=== PATIENT | female | born 1955 | race Caucasian/White ===

== ENCOUNTER 2017-11-04 17:32 | Observation (INO) ==
--- NOTE | 2017-11-04 17:43 | Emergency Department Note ---
Disposition Clinical Impression: Thyroid nodule, Syncope, Closed head injury, Urinary tract infection, Altered mental status Disposition: Admitted As Inpatient Condition: Good General Adult HPI - General Stated complaint: dizziness Time Seen by Provider: 11/04/17 17:37 - Related Data Home Medications Medication Instructions Recorded Confirmed Effexor 150 mg PO DAILY 02/23/15 06/25/15 Glucotrol 5 mg PO DAILY 02/23/15 06/25/15 Losartan. 100 mg PO DAILY 02/23/15 06/25/15 Pravastatin Sodium 40 mg PO BID 02/23/15 06/25/15 Cholecalciferol (Vitamin D3) 1,000 unit PO DAILY 06/25/15 06/25/15 [Vitamin D3] Cyclobenzaprine [Flexeril] 5 mg PO TID 06/25/15 06/25/15 Diclofenac Sodium [Voltaren] 50 mg PO Q8HR 06/25/15 06/25/15 Ergocalciferol (VITAMIN D2) 2,000 unit PO DAILY 06/25/15 06/25/15 [Vitamin D2] Gabapentin [Neurontin] 100 mg PO BID 06/25/15 06/25/15 Previous Rx's Medication Instructions Recorded Amoxicillin/Clavulanate [Augmentin] 875 mg PO BIDWM #14 tablet 06/07/16 Ciprofloxacin HCl [Cipro] 500 mg PO BID #14 tablet 07/31/16 Phenazopyridine HCl [Pyridium] 200 mg PO TIDAC PRN #6 tab 08/01/16 Cyclobenzaprine [Flexeril] 10 mg PO BID #14 tablet 11/08/16 Naproxen [Naprosyn] 250 mg PO BID #30 tablet 11/08/16 Dicyclomine [Bentyl] 20 mg PO QID #56 capsule 03/07/17 levoFLOXacin [Levaquin] 750 mg PO DAILY #5 tablet 05/05/17 metroNIDAZOLE [Flagyl] 500 mg PO BID #14 tablet 05/05/17 Allergies Allergy/AdvReac Type Severity Reaction Status Date / Time codeine Allergy Hives Verified 11/08/16 16:41 Sulfa (Sulfonamide Allergy Hives Verified 11/08/16 16:41 Antibiotics) Past Medical History - Past Medical History Medical history: Reports: arthritis, diabetes, fibromyalgia, hyperlipidemia, hypertension, other Surgical history: Reports: , other (History of D&C. History of esophageal tumor resection.) Psychiatric history: Reports: anxiety, depression - Social History Smoking Status: Former smoker Smokeless Tobacco Status: No Alcohol use: Reports: none Drug use: Reports: none Course Vital Signs Temperature 99.7 F H 11/04/17 17:36 Pulse Rate 72 11/04/17 17:36 Respiratory Rate 18 11/04/17 17:36 Blood Pressure 161/85 11/04/17 17:36 O2 Sat by Pulse Oximetry 99 11/04/17 17:36 Temperature 98.2 F 11/04/17 21:21 Pulse Rate 71 11/04/17 21:21 Respiratory Rate 16 11/04/17 21:21 Blood Pressure 151/70 11/04/17 21:21 O2 Sat by Pulse Oximetry 97 11/04/17 21:21 Oxygen Delivery Oxygen Delivery Room Air Medical Decision Making - Lab Data Result diagrams: 11/04/17 17:51 11/04/17 17:51 Lab Results 11/04/17 11/04/17 11/04/17 Range/Units 17:51 17:51 17:51 WBC 3.9 L (4.3-11.1) K/mcL RBC 3.90 (3.82-4.97) M/mcL Hgb 11.9 (11.5-15.4) g/dL Hct 34.4 L (35.3-44.9) % MCV 88.2 (83.0-100.0) fL MCH 30.5 (28.0-33.3) pg MCHC 34.6 (31.6-35.5) g/dL RDW 13.2 (11.5-14.5) % Plt Count 109 L (140-400) K/mcL MPV 11.2 (9.4-12.4) fL Immature Gran % 0.3 (0-4) % Seg Neutrophils % 63.9 % Lymphocytes % 28.1 % Monocytes % 6.6 % Eosinophils % 0.8 % Basophils % 0.3 % Neutrophils # 2.5 (1.6-8.9) K/mcL Lymphocytes # 1.1 (0.6-4.6) K/mcL Monocytes # 0.3 (0.0-1.3) K/mcL Eosinophils # 0.0 (0.0-0.6) K/mcL Basophils # 0.0 (0.0-0.2) K/mcL PT 13.0 H (9.4-12.1) Seconds INR 1.2 Sodium 138 (136-145) mEq/L Potassium 3.9 (3.5-5.1) mEq/L Chloride 107 (98-107) mEq/L Carbon Dioxide 23 (23-29) mEq/L BUN 13 (8-23) mg/dL Creatinine 0.91 (0.60-1.20) mg/dL Est GFR ( Amer) > 60 (> 60) Est GFR (Non-Af Amer) > 60 (> 60) BUN/Creatinine Ratio 14 (6-26) Glucose 250 H (70-105) mg/dL Calculated Osmolality 295 (280-300) Calcium 9.5 (8.6-10.3) mg/dL Magnesium 1.9 (1.6-2.6) mg/dL Total Bilirubin 0.4 (0.3-1.0) mg/dL AST 13 (13-39) Units/L ALT 18 (7-52) Units/L Alkaline Phosphatase 69 (34-104) Units/L Troponin I < 0.03 (< 0.04) ng/mL Serum Total Protein 7.2 (6.4-8.9) g/dL Albumin 4.5 (3.5-5.7) g/dL Globulin 2.7 (2.4-3.5) g/dL Albumin/Globulin Ratio 1.7 (1.1-2.2) Urine Color (Yellow) Urine Clarity (Clear) Urine pH (5.0-8.0) pH Units Ur Specific [place] (1.010-1.025) Urine Protein (Neg-Trace) mg/dL Urine Glucose (UA) (Normal) mg/dL Urine Ketones (Negative) mg/dL Urine Blood (Negative) Urine Nitrite (Negative) Urine Bilirubin (Negative) Urine Urobilinogen (Normal) mg/dL Ur Leukocyte Esterase (Negative) Urine Microscopic RBC (0-3) per hpf Urine Microscopic WBC (0-3) per hpf Ur Squamous Epith Cells (None-Few) per lpf Urine Bacteria (None-Few) per hpf Hyaline Casts (None-Few) per lpf 11/04/17 Range/Units 18:18 WBC (4.3-11.1) K/mcL RBC (3.82-4.97) M/mcL Hgb (11.5-15.4) g/dL Hct (35.3-44.9) % MCV (83.0-100.0) fL MCH (28.0-33.3) pg MCHC (31.6-35.5) g/dL RDW (11.5-14.5) % Plt Count (140-400) K/mcL MPV (9.4-12.4) fL Immature Gran % (0-4) % Seg Neutrophils % % Lymphocytes % % Monocytes % % Eosinophils % % Basophils % % Neutrophils # (1.6-8.9) K/mcL Lymphocytes # (0.6-4.6) K/mcL Monocytes # (0.0-1.3) K/mcL Eosinophils # (0.0-0.6) K/mcL Basophils # (0.0-0.2) K/mcL PT (9.4-12.1) Seconds INR Sodium (136-145) mEq/L Potassium (3.5-5.1) mEq/L Chloride (98-107) mEq/L Carbon Dioxide (23-29) mEq/L BUN (8-23) mg/dL Creatinine (0.60-1.20) mg/dL Est GFR ( Amer) (> 60) Est GFR (Non-Af Amer) (> 60) BUN/Creatinine Ratio (6-26) Glucose (70-105) mg/dL Calculated Osmolality (280-300) Calcium (8.6-10.3) mg/dL Magnesium (1.6-2.6) mg/dL Total Bilirubin (0.3-1.0) mg/dL AST (13-39) Units/L ALT (7-52) Units/L Alkaline Phosphatase (34-104) Units/L Troponin I (< 0.04) ng/mL Serum Total Protein (6.4-8.9) g/dL Albumin (3.5-5.7) g/dL Globulin (2.4-3.5) g/dL Albumin/Globulin Ratio (1.1-2.2) Urine Color Yellow (Yellow) Urine Clarity Cloudy A (Clear) Urine pH 5.5 (5.0-8.0) pH Units Ur Specific [place] 1.018 (1.010-1.025) Urine Protein Negative (Neg-Trace) mg/dL Urine Glucose (UA) 250 H (Normal) mg/dL Urine Ketones Negative (Negative) mg/dL Urine Blood Trace H (Negative) Urine Nitrite Positive A (Negative) Urine Bilirubin Negative (Negative) Urine Urobilinogen Normal (Normal) mg/dL Ur Leukocyte Esterase Large H (Negative) Urine Microscopic RBC 3-5 H (0-3) per hpf Urine Microscopic WBC TNTC H (0-3) per hpf Ur Squamous Epith Cells Moderate H (None-Few) per lpf Urine Bacteria Many H (None-Few) per hpf Hyaline Casts None Seen (None-Few) per lpf Attestation Statement - Attestation Attestation: I examined this patient and my medical decision-making was reviewed with the Resident Physician. I agree with the documented findings, disposition and treatment plan as described except to the extent set forth below. [id number] time provided Patient arrives by EMS. She states she gets dizzy she fell to her neighbor's floor. She complains of a sensation that the room is spinning and nausea. She is a slightly confused historian and did not know the month. She did accurately answer the correct year. She does not appear in any acute distress on exam. She lives at home alone
[2017-11-04 18:14] LABS: Basophils % 0.3 %; Eosinophils % 0.8 %; Hematocrit 34.4 % (35.3-44.9); Hemoglobin 11.9 g/dL (11.5-15.4); Immature Granulocytes % 0.3 % (0-4); Lymphocytes # 1.1 K/mcL (0.6-4.6); Lymphocytes % 28.1 %; Mean Corpuscular HGB Conc 34.6 g/dL (31.6-35.5); Mean Corpuscular Hemoglobin 30.5 pg (28.0-33.3); Mean Corpuscular Volume 88.2 fL (83.0-100.0); Mean Platelet Volume 11.2 fL (9.4-12.4); Monocytes # 0.3 K/mcL (0.0-1.3); Monocytes % 6.6 %; Neutrophils # 2.5 K/mcL (1.6-8.9); Platelet Count 109 K/mcL (140-400); Red Cell Distribution Width 13.2 % (11.5-14.5); Segmented Neutrophils % 63.9 %
--- NOTE | 2017-11-04 18:16 | Emergency Department Note ---
Disposition Clinical Impression: Thyroid nodule Syncope Qualifiers: Syncope type: unspecified Qualified Code(s): R55 - Syncope and collapse Closed head injury Qualifiers: Encounter type: initial encounter Qualified Code(s): S09.90XA - Unspecified injury of head, initial encounter Urinary tract infection Qualifiers: Urinary tract infection type: site unspecified Hematuria presence: with hematuria Qualified Code(s): N39.0 - Urinary tract infection, site not specified Altered mental status Qualifiers: Altered mental status type: unspecified Qualified Code(s): R41.82 - Altered mental status, unspecified Disposition: Admitted As Inpatient Condition: Good Referrals: Susanna Garnica CNP [Primary Care Provider] - Forms: ED Satisfaction Letter Time of Disposition: 19:34 General Adult HPI - General Chief complaint: ED Dizziness Stated complaint: dizziness Time Seen by Provider: 11/04/17 17:37 Source: patient, EMS Mode of arrival: EMS Limitations: no limitations Nursing Notes Reviewed: Yes Vital Signs Reviewed: Yes - History of Present Illness HPI Narrative: 62-year-old female presents emergency department via EMS for syncopal episode. Patient states she went to her neighbor's house and believe she passed out. She is not able to recall why she was at her neighbors house. She recalls feeling lightheaded. She states she was in the house from a sitting to standing position and then believe she passed out. Her neighbors called EMS. She states earlier today she felt like she was having trouble walking. She states over the past week she has been feeling weak with some complaints of chest pain that had resolved 3 to 4 days ago. Currently she is not complaining of any chest pain or shortness of breath. Does report a slight headache to the front of her head. No neck pain. No history of stroke or seizures. No history of cardiac ischemic disease. No recent illness fever cough or congestion. No history of congestive heart failure. Pain Scale: 4 - Related Data Home Medications Medication Instructions Recorded Confirmed Effexor 150 mg PO DAILY 02/23/15 06/25/15 Glucotrol 5 mg PO DAILY 02/23/15 06/25/15 Losartan. 100 mg PO DAILY 02/23/15 06/25/15 Pravastatin Sodium 40 mg PO BID 02/23/15 06/25/15 Cholecalciferol (Vitamin D3) 1,000 unit PO DAILY 06/25/15 06/25/15 [Vitamin D3] Cyclobenzaprine [Flexeril] 5 mg PO TID 06/25/15 06/25/15 Diclofenac Sodium [Voltaren] 50 mg PO Q8HR 06/25/15 06/25/15 Ergocalciferol (VITAMIN D2) 2,000 unit PO DAILY 06/25/15 06/25/15 [Vitamin D2] Gabapentin [Neurontin] 100 mg PO BID 06/25/15 06/25/15 Previous Rx's Medication Instructions Recorded Amoxicillin/Clavulanate [Augmentin] 875 mg PO BIDWM #14 tablet 06/07/16 Ciprofloxacin HCl [Cipro] 500 mg PO BID #14 tablet 07/31/16 Phenazopyridine HCl [Pyridium] 200 mg PO TIDAC PRN #6 tab 08/01/16 Cyclobenzaprine [Flexeril] 10 mg PO BID #14 tablet 11/08/16 Naproxen [Naprosyn] 250 mg PO BID #30 tablet 11/08/16 Dicyclomine [Bentyl] 20 mg PO QID #56 capsule 03/07/17 levoFLOXacin [Levaquin] 750 mg PO DAILY #5 tablet 05/05/17 metroNIDAZOLE [Flagyl] 500 mg PO BID #14 tablet 05/05/17 Allergies Allergy/AdvReac Type Severity Reaction Status Date / Time codeine Allergy Hives Verified 11/08/16 16:41 Sulfa (Sulfonamide Allergy Hives Verified 11/08/16 16:41 Antibiotics) All systems ED: reviewed and negative except as stated. Review of Systems: As Per HPI Constitutional: Denies: fever, chills Cardiovascular: Reports: syncope. Denies: chest pain, palpitations Respiratory: Denies: cough, dyspnea Gastrointestinal: Denies: abdominal pain, nausea, vomiting Musculoskeletal: Denies: back pain, neck pain Integumentary: Denies: rash Neurological: Reports: headache, confusion, abnormal gait Past Medical History - Past Medical History Attestation: Yes The following information was validated with the patient. Source: patient Medical history: Reports: arthritis, diabetes, fibromyalgia, hyperlipidemia, hypertension, other Surgical history: Reports: , other (History of D&C. History of esophageal tumor resection.) Psychiatric history: Reports: anxiety, depression - Social History Smoking Status: Former smoker Smokeless Tobacco Status: No Alcohol use: Reports: none Drug use: Reports: none Physical Exam - General Limitations: no limitations General appearance: alert, in no apparent distress, other (Slow to answer slightly confused) - Head Head exam: normocephalic, normal inspection - Expanded Head Exam Head exam physicial: Present: abrasion (Right frontal). Absent: contusion - Eye Eye exam: Present: normal appearance, PERRL, EOMI. Absent: nystagmus - ENT ENT exam: normal exam, normal oropharynx, mucous membranes moist, TM's normal bilaterally - Neck Neck exam: Present: normal inspection, full ROM, trachea midline - Chest Chest inspection: Present: normal inspection, symmetric chest wall rise - Respiratory Respiratory exam: Present: normal lung sounds bilaterally - Cardiovascular Cardiovascular exam: Present: regular rate, normal rhythm, normal heart sounds, other (No murmur on Valsalva). Absent: systolic murmur, diastolic murmur - Abdominal Exam Abdominal exam: Present: soft (Obese), Non-Tender, normal bowel sounds. Absent : tenderness, distention, guarding, rebound, rigidity - Extremities Exam Extremities exam: Present: normal inspection, full ROM. Absent: tenderness, pedal edema - Back Exam Back exam: Present: normal inspection, full ROM. Absent: tenderness - Neurological Exam Neurological exam: Present: CN II-XII intact - Expanded Neurological Exam Patient oriented to: Present: person, place. Absent: time (Initially unable to tell at the time but now answers correctly 2018) Cranial nerves: EOM function (II, III, IV, ): Normal, facial sensation (V): Abnormal Right (Subjective dull sensation to the right of her face), facial palsy (VII): Normal, gag reflex (IX): Normal, spinal accessory function (XI): Normal, tongue deviation (XII): Normal Cerebellar function: finger to nose: Normal Motor strength - LUE: 5/5 Motor strength - RUE: 5/5 Motor strength - LLE: 5/5 Motor strength - RLE: 5/5 Upper motor neuron exam: nvaeen neglect: Absent bilaterally, pronator drift: Absent bilaterally Sensory exam upper extremity: light touch: Normal Sensory exam lower extremity: light touch: Normal Coma Scale Eye Opening: Spontaneous Coma Scale Motor Response: Obeys Commands Coma Scale Verbal Response: Confused Coma Scale Total: 14 - Psychiatric Psychiatric exam: Present: normal affect, normal mood - Skin Skin exam: Present: warm, dry, intact, normal color. Absent: rash, cyanosis, diaphoresis Course Course Narrative: Patient presents with a syncopal episode witnessed by neighborhood called EMS. Daughter is now here at bedside and reports similar history. Patient is unable to recall some of the events today. She does report over the past few days feeling lightheaded with difficulty walking. She denies a prior history of this. She is now complaining of a headache. Patient initially was awake alert and only oriented to person place. She is not oriented to time. On neurologic exam she has a dull sensation to the right side of her face and arm that is improving. Otherwise she is following simple commands. No history of congestive heart failure or history of seizure. EKG performed showed sinus rhythm without any ischemic findings. No delta waves, Brugada pattern or LVH appreciated. At this time syncope workup including CT of the head and cervical spine given her loss of consciousness. Will also evaluate for cardiac etiology. - Reevaluation(s) Reevaluation #1: Review of her labs shows a normal hemoglobin level. Her electrolytes are normal. Troponin is less than 0.03. Her urinalysis does appear contaminated but also is positive for Nitrite and leuk esterase strongly suggestive of possible urinary tract infection. At this time will obtain a culture but also treat with ceftriaxone. Review of her images does not reveal any intracranial bleed or abnormality. No cervical fracture seen on CT. There is incidental finding of a 2.6 mm thyroid nodule. Patient was made aware of this finding. At this time patient will benefit further monitoring and workup for her syncopal episode with possible MRI. She will be admitted given her altered mental status syncopal episode and urinary tract infection. Patient and family are in agreement with this plan. Time: 19:32 - Consultations Consultation #1: Spoke with on-call hospitalist levi Miller to admit for UTI, syncope, lightheadedness. Agree with treatment for urinary tract infection. Urine culture has been sent. Recommendation for syncope evaluation and possible MRI Time: 19:43 Vital Signs Temperature 99.7 F H 11/04/17 17:36 Pulse Rate 72 11/04/17 17:36 Respiratory Rate 18 11/04/17 17:36 Blood Pressure 161/85 11/04/17 17:36 O2 Sat by Pulse Oximetry 99 11/04/17 17:36 Temperature 99.7 F H 11/04/17 17:36 Pulse Rate 81 11/04/17 19:20 Respiratory Rate 16 11/04/17 19:20 Blood Pressure 164/86 11/04/17 19:20 O2 Sat by Pulse Oximetry 99 11/04/17 19:20 Oxygen Delivery Oxygen Delivery Room Air Medical Decision Making - MDM Narrative Medical decision making narrative: Patient was discussed with my attending physician who agrees with ED management and final disposition. They independently evaluated the patient. Please refer to their attestation to this encounter for additional information. This note was generated by [employer] recognition software and as a result grammatical or spelling errors may occur using this program. - Medical Records Medical records reviewed: Yes I reviewed the patient's medical records. - Lab Data Lab results reviewed: Yes I reviewed the patient's lab results. Result diagrams: 11/04/17 17:51 11/04/17 17:51 Lab Results 11/04/17 11/04/17 11/04/17 Range/Units 17:51 17:51 17:51 WBC 3.9 L (4.3-11.1) K/mcL RBC 3.90 (3.82-4.97) M/mcL Hgb 11.9 (11.5-15.4) g/dL Hct 34.4 L (35.3-44.9) % MCV 88.2 (83.0-100.0) fL MCH 30.5 (28.0-33.3) pg MCHC 34.6 (31.6-35.5) g/dL RDW 13.2 (11.5-14.5) % Plt Count 109 L (140-400) K/mcL MPV 11.2 (9.4-12.4) fL Immature Gran % 0.3 (0-4) % Seg Neutrophils % 63.9 % Lymphocytes % 28.1 % Monocytes % 6.6 % Eosinophils % 0.8 % Basophils % 0.3 % Neutrophils # 2.5 (1.6-8.9) K/mcL Lymphocytes # 1.1 (0.6-4.6) K/mcL Monocytes # 0.3 (0.0-1.3) K/mcL Eosinophils # 0.0 (0.0-0.6) K/mcL Basophils # 0.0 (0.0-0.2) K/mcL PT 13.0 H (9.4-12.1) Seconds INR 1.2 Sodium 138 (136-145) mEq/L Potassium 3.9 (3.5-5.1) mEq/L Chloride 107 (98-107) mEq/L Carbon Dioxide 23 (23-29) mEq/L BUN 13 (8-23) mg/dL Creatinine 0.91 (0.60-1.20) mg/dL Est GFR ( Amer) > 60 (> 60) Est GFR (Non-Af Amer) > 60 (> 60) BUN/Creatinine Ratio 14 (6-26) Glucose 250 H (70-105) mg/dL Calculated Osmolality 295 (280-300) Calcium 9.5 (8.6-10.3) mg/dL Magnesium 1.9 (1.6-2.6) mg/dL Total Bilirubin 0.4 (0.3-1.0) mg/dL AST 13 (13-39) Units/L ALT 18 (7-52) Units/L Alkaline Phosphatase 69 (34-104) Units/L Troponin I < 0.03 (< 0.04) ng/mL Serum Total Protein 7.2 (6.4-8.9) g/dL Albumin 4.5 (3.5-5.7) g/dL Globulin 2.7 (2.4-3.5) g/dL Albumin/Globulin Ratio 1.7 (1.1-2.2) Urine Color (Yellow) Urine Clarity (Clear) Urine pH (5.0-8.0) pH Units Ur Specific [place] (1.010-1.025) Urine Protein (Neg-Trace) mg/dL Urine Glucose (UA) (Normal) mg/dL Urine Ketones (Negative) mg/dL Urine Blood (Negative) Urine Nitrite (Negative) Urine Bilirubin (Negative) Urine Urobilinogen (Normal) mg/dL Ur Leukocyte Esterase (Negative) Urine Microscopic RBC (0-3) per hpf Urine Microscopic WBC (0-3) per hpf Ur Squamous Epith Cells (None-Few) per lpf Urine Bacteria (None-Few) per hpf Hyaline Casts (None-Few) per lpf 11/04/17 Range/Units 18:18 WBC (4.3-11.1) K/mcL RBC (3.82-4.97) M/mcL Hgb (11.5-15.4) g/dL Hct (35.3-44.9) % MCV (83.0-100.0) fL MCH (28.0-33.3) pg MCHC (31.6-35.5) g/dL RDW (11.5-14.5) % Plt Count (140-400) K/mcL MPV (9.4-12.4) fL Immature Gran % (0-4) % Seg Neutrophils % % Lymphocytes % % Monocytes % % Eosinophils % % Basophils % % Neutrophils # (1.6-8.9) K/mcL Lymphocytes # (0.6-4.6) K/mcL Monocytes # (0.0-1.3) K/mcL Eosinophils # (0.0-0.6) K/mcL Basophils # (0.0-0.2) K/mcL PT (9.4-12.1) Seconds INR Sodium (136-145) mEq/L Potassium (3.5-5.1) mEq/L Chloride (98-107) mEq/L Carbon Dioxide (23-29) mEq/L BUN (8-23) mg/dL Creatinine (0.60-1.20) mg/dL Est GFR ( Amer) (> 60) Est GFR (Non-Af Amer) (> 60) BUN/Creatinine Ratio (6-26) Glucose (70-105) mg/dL Calculated Osmolality (280-300) Calcium (8.6-10.3) mg/dL Magnesium (1.6-2.6) mg/dL Total Bilirubin (0.3-1.0) mg/dL AST (13-39) Units/L ALT (7-52) Units/L Alkaline Phosphatase (34-104) Units/L Troponin I (< 0.04) ng/mL Serum Total Protein (6.4-8.9) g/dL Albumin (3.5-5.7) g/dL Globulin (2.4-3.5) g/dL Albumin/Globulin Ratio (1.1-2.2) Urine Color Yellow (Yellow) Urine Clarity Cloudy A (Clear) Urine pH 5.5 (5.0-8.0) pH Units Ur Specific [place] 1.018 (1.010-1.025) Urine Protein Negative (Neg-Trace) mg/dL Urine Glucose (UA) 250 H (Normal) mg/dL Urine Ketones Negative (Negative) mg/dL Urine Blood Trace H (Negative) Urine Nitrite Positive A (Negative) Urine Bilirubin Negative (Negative) Urine Urobilinogen Normal (Normal) mg/dL Ur Leukocyte Esterase Large H (Negative) Urine Microscopic RBC 3-5 H (0-3) per hpf Urine Microscopic WBC TNTC H (0-3) per hpf Ur Squamous Epith Cells Moderate H (None-Few) per lpf Urine Bacteria Many H (None-Few) per hpf Hyaline Casts None Seen (None-Few) per lpf - Radiology Data Radiology results reviewed: Yes I reviewed the patient's radiology results. Cervical Spine CT 11/04/17 17:47 IMPRESSION: 1. No acute cervical spine abnormality 2. 2.6 cm hypodense left thyroid nodule. See recommendations below. RECOMMENDATIONS: Managing Incidental Thyroid Nodule Detected at CT or MRI or US 1. Further evaluation by thyroid Ultrasound recommended for these incidental nodules: Patient Age 18 years or less - Nodule of any size Patient Age 19-34 years old - Nodule 1 cm in size or greater Patient Age 35 years or more - Nodule 1.5 cm in size or greater 2. Follow up thyroid ultrasound also recommend in these scenarios - Solitary nodule with high risk imaging features (locally invasive nodule or suspicious lymph nodes) - Heterogeneous, enlarged thyroid gland. - Increased uptake on PET 3. No further imaging is recommended in the following scenarios - Any nodule not meeting above criteria. - Those patients with limited life expectancy or significant Co-morbidities. Note: These recommendations do not apply to pts. w/ increased risk for thyroid cancer or pts. with symptomatic thyroid disease. Recommendations for f/u of Incidental Thyroid Nodules (ITN) found on CT, MR, NM and Extrathyroidal US are based upon the ACR white paper and [place] 3-tiered system for managing ITNs: J Am Daren Radiol. 2015 Mar;12(2): 143-50 D/ / Brian Zuleta MD / Brian Zuleta MD Interpreting Provider: Brian Zuleta MD Head CT 11/04/17 17:47 IMPRESSION: No acute intracranial abnormality. D/ / Amaris Yap MD / Amaris Yap MD Interpreting Provider: Amaris Yap MD - EKG Data EKG #1 EKG attestation: Yes I reviewed and interpreted this EKG. EKG results narrative: EKG performed 1744 normal sinus rhythm 70 beats per minute, left anterior fascicular block, poor R wave progression, no ST elevation or depression, no Brugada pattern appreciated, no delta waves, no LVH. Compared to prior EKG performed 04/20/2016 shows similar consistent findings of sinus rhythm. No acute ischemic changes.
[2017-11-04 18:21] LABS: INR 1.2
[2017-11-04 18:31] LABS: Alanine Aminotransferase 18 Units/L (7-52); Albumin 4.5 g/dL (3.5-5.7); Albumin/Globulin Ratio 1.7 (1.1-2.2); Alkaline Phosphatase 69 Units/L (34-104); Aspartate Amino Transferase 13 Units/L (13-39); BUN/Creatinine Ratio 14 (6-26); Bilirubin,Total 0.4 mg/dL (0.3-1.0); Blood Urea Nitrogen 13 mg/dL (8-23); Calcium 9.5 mg/dL (8.6-10.3); Carbon Dioxide 23 mEq/L (23-29); Chloride 107 mEq/L (98-107); Globulin 2.7 g/dL (2.4-3.5); Glucose 250 mg/dL (70-105); Magnesium 1.9 mg/dL (1.6-2.6); Osmolality,Calculated 295 (280-300); Potassium 3.9 mEq/L (3.5-5.1); Sodium 138 mEq/L (136-145); Total Protein 7.2 g/dL (6.4-8.9); Troponin I < 0.03 ng/mL (< 0.04); eGFR For Non-African Americans > 60 (> 60)
[2017-11-04 18:34] LABS: Bilirubin,Urine Negative (Negative); Blood,Urine Trace (Negative); Clarity,Urine Cloudy (Clear); Color,Urine Yellow (Yellow); Glucose,Urine (UA) 250 mg/dL (Normal); Ketones,Urine Negative (Negative); Leukocyte Esterase,Urine Large (Negative); Nitrite,Urine Positive (Negative); PH,Urine 5.5 pH Units (5.0-8.0); Protein,Urine Negative (Neg-Trace); Specific Gravity,Urine 1.018 (1.010-1.025); Urobilinogen,Urine Normal (Normal)
[2017-11-04 18:37] LABS: Bacteria,Urine Many per hpf (None-Few); Hyaline Casts,Urine None Seen per lpf (None-Few); Squamous Epithelial Cell,Urine Moderate per lpf (None-Few); WBC,Urine TNTC per hpf (0-3)
[2017-11-04] MEDS ORDERED: cefTRIAXone 1,000 MG in Water for inj. (sterile) 20 ML 10 ML IVPB ONE (18:45)
[2017-11-04] MEDS ORDERED: Naloxone 0.4 MG/ML INJ IVP PRN (22:39)
[2017-11-05] MEDS ORDERED: Ibuprofen 400 MG TABLET PO PRN (02:18)
--- NOTE | 2017-11-05 04:23 | Internal Med History&Physical ---
Date of Encounter: 11/04/17 Time of Encounter: 22:00 Internal Medicine - H&P: HPI Chief complaint: UTI, syncope Admitted From: Emergency Dept Plans for Post Hospital Care: Home History of present illness: Ms. Duffy is a 62 year old female Patient states that she was at her neighbor's house and began feeling dizzy when she passed out. She had been feeling dizzy the last couple of days but had not passed out until when she was at her neighbor's house. She recalls the moment as she was blacking out because she remembers her neighbor talking to her. She remembers the moment she woke up as her neighbor was at her side and also getting the attention of her daughter who was next door. She denies hitting her head. Her daughter who is at bedside indicated that she has had several falls lately, though patient denies this. No seizure-like activity with these episodes were observed, patient did not lose bowel or bladder control. She does state she has a family history of seizures but she has never had one herself. She was transported to the hospital for further management and workup of her syncope. In the emergency room urinalysis was positive for likely infection, she had a platelet count of 109 in a blood glucose of 250. Cervical spine CT showed no acute cervical spine abnormality and head CT showed no acute intracranial abnormality. Cervical spine CT did show a 2.6 cm hypodense left thyroid nodule however. She was started on ceftriaxone, urine cultures were obtained she was admitted to the medical floor. Upon my assessment patient states that she is having some right lower quadrant pain, though this is not new. She has been having workup outpatient for this and has a prescription for a right lower quadrant ultrasound which she has not done yet. She states she has a history of sciatica, possibly cirrhosis and genital herpes but no recent outbreak. She claims to drink lots of water and she stays hydrated. She denies nausea, vomiting, diarrhea, constipation, chest pain. Past Med Surg Social Fam HX - Past Medical History Medical history: arthritis, diabetes, fibromyalgia, hyperlipidemia, hypertension , other Psychiatric history: anxiety, depression - Past Surgical History Surgical History: , other (History of D&C. 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 100 mg PO DAILY 02/23/15 [History] Pravastatin Sodium 40 mg PO DAILY 02/23/15 [History] Cholecalciferol (Vitamin D3) [Vitamin D3] 1,000 unit PO DAILY 06/25/15 [History] Cyclobenzaprine [Flexeril] 5 mg PO TID 06/25/15 [History] Diclofenac Sodium [Voltaren] 50 mg PO TID 06/25/15 [History] Ergocalciferol (VITAMIN D2) [Vitamin D2] 2,000 unit PO DAILY 06/25/15 [History] Gabapentin [Neurontin] 100 mg PO BID 06/25/15 [History] Amoxicillin/Clavulanate [Augmentin] 875 mg PO BIDWM #14 tablet 06/07/16 [Rx] Ciprofloxacin HCl [Cipro] 500 mg PO BID #14 tablet 07/31/16 [Rx] Phenazopyridine HCl [Pyridium] 200 mg PO TIDAC PRN #6 tab 08/01/16 [Rx] Cyclobenzaprine [Flexeril] 10 mg PO BID #14 tablet 11/08/16 [Rx] Naproxen [Naprosyn] 250 mg PO BID #30 tablet 11/08/16 [Rx] Dicyclomine [Bentyl] 20 mg PO QID #56 capsule 03/07/17 [Rx] levoFLOXacin [Levaquin] 750 mg PO DAILY #5 tablet 05/05/17 [Rx] metroNIDAZOLE [Flagyl] 500 mg PO BID #14 tablet 05/05/17 [Rx] Metformin HCl 1,000 mg PO BID 11/05/17 [History] Neurontin 600 mg PO BID 11/05/17 [History] 3 Allergy/AdvReac Type Severity Reaction Status Date / Time codeine Allergy Hives Verified 11/08/16 16:41 Sulfa (Sulfonamide Allergy Hives Verified 11/08/16 16:41 Antibiotics) All Systems PM: A 10-system review of systems was performed and is negative for pertinent findings except as documented above in the HPI. - Constitutional Vitals: Temp Pulse Resp BP Pulse Ox 98.1 F 67 16 115/49 98 11/05/17 02:46 11/05/17 02:46 11/05/17 02:46 11/05/17 02:46 11/05/17 02:46 General appearance: Present: cooperative, mild distress, A&O X 3, pleasant, answers questions appropriately Exam: Mild distress due to urinary pain - Head Head exam: Present: normal inspection - Eye Eye exam: Present: EOMI, normal appearance - Respiratory Respiratory exam: Present: CTAB. Absent: chest wall tenderness, respiratory distress, rhonchi, wheezes - Cardiovascular Cardiovascular exam: Present: RRR. Absent: diastolic murmur, systolic murmur - GI/Abdominal GI/Abdominal exam: Present: soft, tenderness. Absent: guarding Additional comments: Mild right lower quadrant pain to deep palpation - Extremities Exam Extremities exam: Present: warm, radial pulses palpable and symmetrical. Absent : calf tenderness, pedal edema, tenderness - Neurological Exam Neurological exam: Present: no focal deficits, strengths equal and symetr throughout. Absent: motor sensory deficit, facial droop, speech deficit - Skin Skin exam: Present: dry, normal color, warm Internal Med - H&P Results - Labs CBC & Chem 7: 11/04/17 17:51 11/04/17 17:51 - Assessment and plan (1) Urinary tract infection Current Visit: Yes Status: Acute Assessment and plan: UA positive for nitrites and large leukocyte esterase, trace blood and many bacteria. Urine culture ordered, ceftriaxone initiated in the emergency room. Continue ceftriaxone Follow-up urine culture Pyidium for dysuria Diclofenac for pain, allergy to codeine Repeat UA to ensure hematuria resolution. Qualifiers: Urinary tract infection type: site unspecified Hematuria presence: with hematuria Qualified Code(s): N39.0 - Urinary tract infection, site not specified; R31.9 - Hematuria, unspecified (2) Syncope Current Visit: Yes Status: Acute Assessment and plan: Could be exacerbated by urinary tract infection, patient has had several of them in the past. Daughter states that she has several falls at home. No seizure history. PT/OT consult in AM Orthostatic vital signs in AM Treat UTI as above Qualifiers: Syncope type: unspecified Qualified Code(s): R55 - Syncope and collapse (3) Poorly controlled diabetes mellitus Current Visit: No Status: Acute Assessment and plan: Glucose of 250 in ER. States that her sugars at home range in the high 100's to 200's normally. A1c in August was 7.5 Continue to monitor sugars with meals and at night Low dose sliding scale insulin. (4) Thyroid nodule Current Visit: Yes Status: Acute Assessment and plan: Has history of work up for this back in May, including biopsy. Results consistent with benign follicular nodule with reactive fibrosis. Continue to monitor. (5) Thrombocytopenia Current Visit: No Status: Acute Assessment and plan: Platelets 109, states that she might have a history of cirrhosis, but this diagnosis not in her history. Continue to monitor. (6) DVT prophylaxis Current Visit: Yes Status: Acute Assessment and plan: SCDs due to thrombocytopenia (7) Right lower quadrant abdominal pain Current Visit: Yes Status: Acute Assessment and plan: Could be related to UTI, has mild tenderness on exam. Consider ultrasound if not improving with treatment of UTI. - Time Spent With Patient Total time spent is greater than 50% in coordination of care (as documented) at patient's floor/unit and/or counseling patient: 25 - 35 minutes
[2017-11-05] MEDS ORDERED: D5% in Water 1,000 ML IVC PRN (04:38)
[2017-11-05] MEDS ORDERED: Dextrose Gel 15 GM/37.5 ML TUBE PO PRN ×2 (04:38)
[2017-11-05] MEDS ORDERED: *HR* Dextrose 50 % in Water (Syg) 50 ML SYRINGE IVP PRN (04:38)
[2017-11-05 05:08] LABS: Hematocrit 34.7 % (35.3-44.9); Hemoglobin 11.6 g/dL (11.5-15.4); Mean Corpuscular HGB Conc 33.4 g/dL (31.6-35.5); Mean Corpuscular Hemoglobin 29.9 pg (28.0-33.3); Mean Corpuscular Volume 89.4 fL (83.0-100.0); Mean Platelet Volume 11.4 fL (9.4-12.4); Platelet Count 108 K/mcL (140-400); Red Blood Count 3.88 M/mcL (3.82-4.97); Red Cell Distribution Width 13.2 % (11.5-14.5)
[2017-11-05 05:28] LABS: BUN/Creatinine Ratio 13 (6-26); Blood Urea Nitrogen 12 mg/dL (8-23); Calcium 9.5 mg/dL (8.6-10.3); Carbon Dioxide 25 mEq/L (23-29); Chloride 107 mEq/L (98-107); Glucose 158 mg/dL (70-105); Osmolality,Calculated 293 (280-300); Potassium 3.6 mEq/L (3.5-5.1); Sodium 140 mEq/L (136-145); eGFR For Non-African Americans > 60 (> 60)
[2017-11-05] MEDS: Insulin LISPRO 300 UNITS/3 ML VIAL SQ SCH ×3 (09:36→17:59)
[2017-11-05] MEDS: Venlafaxine XR (24 HR) 150 MG CAP.ER.24H PO SCH (09:38)
[2017-11-05] MEDS: Gabapentin 300 MG CAPSULE PO SCH ×2 (09:38→21:04)
[2017-11-05] MEDS: cefTRIAXone 1,000 MG in Water for inj. (sterile) 20 ML 10 ML IVP SCH (09:38)
--- NOTE | 2017-11-05 16:43 | Internal Med Progress Note ---
Hospitalist Progress Note - Encounter Date of Encounter: 11/05/17 Time of Encounter: 15:30 - Subjective Interval History: Ms Duffy is currently in observation for near syncope that appears related to UTI. She remains moderate to high risk. Ms Duffy is still feeling dizzy when she stands but is overall slowly improving. No fever or chills. Appetite OK. Culture of urine is pending at this time. - Exam Vitals: Temp Pulse Resp BP Pulse Ox 98.0 F 75 17 142/78 98 11/05/17 15:45 11/05/17 15:45 11/05/17 15:45 11/05/17 15:45 11/05/17 15:45 Exam: General: Alert and oriented. Comfortable at this time. Skin: Normal color, no rash, no lesions. H: Normocephalic. EENT: EOMI, pupils equal, round and reactive. Mucus membranes moist. No lesion. Cardiovascular: Normal S1 & S2, no rubs, or gallops. No JVD. Pulse regular. ? faint systolic murmur. Lungs: Normal breath sounds, no wheezes or crackles. Abdomen: Soft, no rigidity. Normal bowel sounds. Mild discomfort R side without peritoneal signs. Extremities: No deformity, no edema or tenderness, no joint swelling or clubbing. Neurological: Normal cognition and motor skills. Pulses: Carotid and radial pulses normal +2. Rest of the physical exam is non contributory - Assessment and Plan (1) Urinary tract infection Current Visit: Yes Status: Acute Assessment and Plan: UA suggestive of infection. Culture pending at this time. Continue IV abx. Will check ultrasound of pelvis due pain in abdomen. (2) Syncope Current Visit: Yes Status: Acute Assessment and Plan: Related to UTI. (3) Diabetes mellitus Current Visit: No Status: Chronic Assessment and Plan: Blood sugar markedly elevated this afternoon. Continue current management of blood sugar. (4) Hypertension Current Visit: Yes Status: Chronic Assessment and Plan: Fairly controlled. Continue meds. (5) Thrombocytopenia Current Visit: No Status: Chronic Assessment and Plan: Following. - Time Spent with Patient Total time spent is greater than 50% in coordination of care (as documented) at patient's floor/unit and/or counseling patient: Internal Medicine: Result - Labs CBC & Chem 7: 11/05/17 03:52 11/05/17 03:52 Labs: Short CBC 11/05/17 Range/Units 03:52 WBC 5.7 (4.3-11.1) K/mcL Hgb 11.6 (11.5-15.4) g/dL Hct 34.7 L (35.3-44.9) % Plt Count 108 L (140-400) K/mcL BMP 11/05/17 03:52 Sodium 140 Potassium 3.6 Chloride 107 Carbon Dioxide 25 BUN 12 Creatinine 0.89 Glucose 158 H Calcium 9.5 - ABG Interpretation ABG results: PT/INR, D-dimer PT 13.0 Seconds (9.4-12.1) H 11/04/17 17:51 Consult Discharge Plan - Plan Referrals: Susanna Garnica, STATE COMPTROLLER [Primary Care Provider] - 11/12/17 2:00 pm (1) Urinary tract infection Qualifiers: Urinary tract infection type: acute cystitis Hematuria presence: with hematuria Qualified Code(s): N30.01 - Acute cystitis with hematuria (2) Syncope Qualifiers: Syncope type: unspecified Qualified Code(s): R55 - Syncope and collapse (3) Diabetes mellitus Qualifiers: Diabetes mellitus type: type 2 Diabetes mellitus detention insulin use: without photo technician use Diabetes mellitus complication status: with hyperglycemia Qualified Code(s): E11.65 - Type 2 diabetes mellitus with hyperglycemia (4) Hypertension Qualifiers: Hypertension type: essential hypertension Qualified Code(s): I10 - Essential (primary) hypertension
[2017-11-05] MEDS ORDERED: Insulin LISPRO 300 UNITS/3 ML VIAL SQ SCH (21:00)
[2017-11-05] MEDS: Acetaminophen 325 MG TABLET PO PRN (21:04)
[2017-11-06 05:15] LABS: Hematocrit 32.3 % (35.3-44.9); Hemoglobin 10.7 g/dL (11.5-15.4); Mean Corpuscular HGB Conc 33.1 g/dL (31.6-35.5); Mean Corpuscular Hemoglobin 29.5 pg (28.0-33.3); Mean Platelet Volume 10.8 fL (9.4-12.4); Platelet Count 106 K/mcL (140-400); Red Blood Count 3.63 M/mcL (3.82-4.97); Red Cell Distribution Width 13.2 % (11.5-14.5)
[2017-11-06 05:36] LABS: BUN/Creatinine Ratio 17 (6-26); Blood Urea Nitrogen 17 mg/dL (8-23); Carbon Dioxide 23 mEq/L (23-29); Chloride 107 mEq/L (98-107); Glucose 183 mg/dL (70-105); Magnesium 1.9 mg/dL (1.6-2.6); Osmolality,Calculated 294 (280-300); Potassium 3.7 mEq/L (3.5-5.1); Sodium 139 mEq/L (136-145); eGFR For Non-African Americans 56 (> 60)
[2017-11-06] MEDS: Insulin LISPRO 300 UNITS/3 ML VIAL SQ SCH ×4 (09:09→22:12)
[2017-11-06] MEDS: cefTRIAXone 1,000 MG in Water for inj. (sterile) 20 ML 10 ML IVP SCH (09:10)
[2017-11-06] MEDS: Gabapentin 300 MG CAPSULE PO SCH ×2 (09:11→20:34)
[2017-11-06] MEDS: Venlafaxine XR (24 HR) 150 MG CAP.ER.24H PO SCH (09:11)
--- NOTE | 2017-11-06 12:22 | Internal Med Progress Note ---
Hospitalist Progress Note - Encounter Date of Encounter: 11/06/17 Time of Encounter: 12:21 - Subjective Interval History: Patient seen and examined at bedside. Patient states that she feels weak and lightheaded. Denies any urinary symptoms at this - Exam Vitals: Temp Pulse Resp BP Pulse Ox 98.0 F 59 18 106/66 98 11/06/17 11:04 11/06/17 11:04 11/06/17 11:04 11/06/17 11:04 11/06/17 11:04 Exam: General: Alert and oriented. Comfortable at this time. Skin: Normal color, no rash, no lesions. H: Normocephalic. EENT: EOMI, pupils equal, round and reactive. Mucus membranes moist. No lesion. Cardiovascular: Normal S1 & S2, no rubs, or gallops. No JVD. Pulse regular. Lungs: Normal breath sounds, no wheezes or crackles. Abdomen: Soft, no rigidity. Normal bowel sounds. Mild discomfort R side without peritoneal signs. Extremities: No deformity, no edema or tenderness, no joint swelling or clubbing. Neurological: Normal cognition and motor skills. Pulses: Carotid and radial pulses normal +2. Rest of the physical exam is non contributory - Assessment and Plan (1) Diabetes mellitus Current Visit: No Status: Chronic Assessment and Plan: Blood sugar-up and elevated. We will increase sliding scale to medium continue with diabetic diet (2) Thrombocytopenia Current Visit: No Status: Chronic Assessment and Plan: Appears to be stable at this time no active bleeding (3) Syncope Current Visit: Yes Status: Acute Assessment and Plan: Suspect related to UTI PT OT evaluate patient recommending vestibular PT as outpatient as well as walker We will recheck orthostatic vital signs (4) Urinary tract infection Current Visit: Yes Status: Acute Assessment and Plan: UA suggestive of infection. Culture pending at this time. Continue IV abx. ultrasound of pelvis due pain in abdomen-unremarkable pelvic ultrasound (5) Hypertension Current Visit: Yes Status: Chronic Assessment and Plan: Fairly controlled. Continue meds. - Time Spent with Patient Total time spent is greater than 50% in coordination of care (as documented) at patient's floor/unit and/or counseling patient: Internal Medicine: Result - Labs CBC & Chem 7: 11/06/17 04:54 11/06/17 04:54 Labs: Short CBC 11/06/17 Range/Units 04:54 WBC 4.3 (4.3-11.1) K/mcL Hgb 10.7 L (11.5-15.4) g/dL Hct 32.3 L (35.3-44.9) % Plt Count 106 L (140-400) K/mcL BMP 11/06/17 04:54 Sodium 139 Potassium 3.7 Chloride 107 Carbon Dioxide 23 BUN 17 Creatinine 1.00 Glucose 183 H Calcium 9.0 - ABG Interpretation ABG results: PT/INR, D-dimer PT 13.0 Seconds (9.4-12.1) H 11/04/17 17:51 - Impressions Impressions Pelvis Ultrasound 11/05/17 22:00 IMPRESSION: Unremarkable pelvic ultrasound. Neither ovary visualized. D/ / Alfredo Gardner MD / Alfredo Gardner MD Interpreting Provider: Alfredo Gardner MD Consult Discharge Plan - Plan Referrals: Susanna Garnica MARINE PIPEFITTER [Primary Care Provider] - 11/12/17 2:00 pm (1) Diabetes mellitus Qualifiers: Diabetes mellitus type: type 2 Diabetes mellitus terminal system operator insulin use: without terminal system operator use Diabetes mellitus complication status: with hyperglycemia Qualified Code(s): E11.65 - Type 2 diabetes mellitus with hyperglycemia (3) Syncope Qualifiers: Syncope type: unspecified Qualified Code(s): R55 - Syncope and collapse (4) Urinary tract infection Qualifiers: Urinary tract infection type: acute cystitis Hematuria presence: with hematuria Qualified Code(s): N30.01 - Acute cystitis with hematuria (5) Hypertension Qualifiers: Hypertension type: essential hypertension Qualified Code(s): I10 - Essential (primary) hypertension
[2017-11-06] MEDS: Acetaminophen 325 MG TABLET PO PRN (16:34)
[2017-11-07 04:55] LABS: Basophils % 0.5 %; Eosinophils # 0.1 K/mcL (0.0-0.6); Eosinophils % 1.4 %; Hematocrit 31.8 % (35.3-44.9); Hemoglobin 10.5 g/dL (11.5-15.4); Immature Granulocytes % 0.2 % (0-4); Lymphocytes # 1.8 K/mcL (0.6-4.6); Lymphocytes % 42.4 %; Mean Corpuscular Hemoglobin 29.3 pg (28.0-33.3); Mean Corpuscular Volume 88.8 fL (83.0-100.0); Mean Platelet Volume 11.5 fL (9.4-12.4); Monocytes # 0.3 K/mcL (0.0-1.3); Platelet Count 112 K/mcL (140-400); Red Blood Count 3.58 M/mcL (3.82-4.97); Red Cell Distribution Width 13.2 % (11.5-14.5); Segmented Neutrophils % 48.5 %
[2017-11-07 05:19] LABS: BUN/Creatinine Ratio 21 (6-26); Blood Urea Nitrogen 20 mg/dL (8-23); Calcium 8.9 mg/dL (8.6-10.3); Carbon Dioxide 24 mEq/L (23-29); Chloride 108 mEq/L (98-107); Glucose 152 mg/dL (70-105); Osmolality,Calculated 296 (280-300); Potassium 3.8 mEq/L (3.5-5.1); Sodium 140 mEq/L (136-145); eGFR For Non-African Americans 60 (> 60)
[2017-11-07] MEDS: cefTRIAXone 1,000 MG in Water for inj. (sterile) 20 ML 10 ML IVP SCH (09:46)
[2017-11-07] MEDS: Gabapentin 300 MG CAPSULE PO SCH ×2 (09:47→21:09)
[2017-11-07] MEDS: Insulin LISPRO 300 UNITS/3 ML VIAL SQ SCH ×4 (09:48→21:09)
[2017-11-07] MEDS: Venlafaxine XR (24 HR) 150 MG CAP.ER.24H PO SCH (09:48)
--- NOTE | 2017-11-07 18:56 | Internal Med Progress Note ---
Hospitalist Progress Note - Encounter Date of Encounter: 11/07/17 Time of Encounter: 12:00 - Subjective Interval History: Patient seen and examined at bedside. Patient continues to experience lightheadedness and dizziness-she has had multiple falls in the past at home. Orthostatic vital signs are positive We will obtain echo and MRI as well as carotid Dopplers - Exam Vitals: Temp Pulse Resp BP Pulse Ox 98.2 F 73 16 135/71 97 11/07/17 16:07 11/07/17 16:07 11/07/17 16:07 11/07/17 16:07 11/07/17 16:07 Exam: General: Alert and oriented. Comfortable at this time. Skin: Normal color, no rash, no lesions. H: Normocephalic. EENT: EOMI, pupils equal, round and reactive. Mucus membranes moist. No nystagmus Cardiovascular: Normal S1 & S2, no rubs, or gallops. No JVD. Pulse regular. Lungs: Normal breath sounds, no wheezes or crackles. Abdomen: Soft, no rigidity. Normal bowel sounds. Mild discomfort R side without peritoneal signs. Extremities: No deformity, no edema or tenderness, no joint swelling or clubbing. Neurological: Normal cognition and motor skills. Pulses: Carotid and radial pulses normal +2. Rest of the physical exam is non contributory - Assessment and Plan (1) Syncope Current Visit: Yes Status: Acute Assessment and Plan: Originally suspect related to UTI however patient has received adequate antibiotic coverage and continued to experience lightheadedness and dizziness.- Systolic vital signs are positive we will hold Cozaar for now We will obtain echo, MRI as well as carotid Dopplers PT OT evaluate patient recommending vestibular PT as outpatient as well as walker (2) Diabetes mellitus Current Visit: No Status: Chronic Assessment and Plan: Blood sugar-improved continue sliding scale - medium continue with diabetic diet (3) Thrombocytopenia Current Visit: No Status: Chronic Assessment and Plan: Appears to be stable at this time no active bleeding (4) Urinary tract infection Current Visit: Yes Status: Acute Assessment and Plan: UA suggestive of infection. Culture did grow Escherichia coli which was sensitive to Rocephin. ultrasound of pelvis due pain in abdomen-unremarkable pelvic ultrasound (5) Hypertension Current Visit: Yes Status: Chronic Assessment and Plan: Fairly controlled. We will hold Cozaar for now due to orthostatic hypertension - Time Spent with Patient Total time spent is greater than 50% in coordination of care (as documented) at patient's floor/unit and/or counseling patient: Internal Medicine: Result - Labs CBC & Chem 7: 11/07/17 03:17 11/07/17 03:17 Labs: Short CBC 11/07/17 Range/Units 03:17 WBC 4.2 L (4.3-11.1) K/mcL Hgb 10.5 L (11.5-15.4) g/dL Hct 31.8 L (35.3-44.9) % Plt Count 112 L (140-400) K/mcL Neutrophils # 2.0 (1.6-8.9) K/mcL BMP 11/07/17 03:17 Sodium 140 Potassium 3.8 Chloride 108 H Carbon Dioxide 24 BUN 20 Creatinine 0.95 Glucose 152 H Calcium 8.9 - ABG Interpretation ABG results: PT/INR, D-dimer PT 13.0 Seconds (9.4-12.1) H 11/04/17 17:51 Consult Discharge Plan - Plan Referrals: Susanna Garnica, SENIOR CLINICIAN [Primary Care Provider] - 11/12/17 2:00 pm (1) Syncope Qualifiers: Syncope type: unspecified Qualified Code(s): R55 - Syncope and collapse (2) Diabetes mellitus Qualifiers: Diabetes mellitus type: type 2 Diabetes mellitus rn long term care insulin use: without prison use Diabetes mellitus complication status: with hyperglycemia Qualified Code(s): E11.65 - Type 2 diabetes mellitus with hyperglycemia (4) Urinary tract infection Qualifiers: Urinary tract infection type: acute cystitis Hematuria presence: with hematuria Qualified Code(s): N30.01 - Acute cystitis with hematuria (5) Hypertension Qualifiers: Hypertension type: essential hypertension Qualified Code(s): I10 - Essential (primary) hypertension
[2017-11-08 06:13] LABS: Basophils % 0.4 %; Eosinophils # 0.1 K/mcL (0.0-0.6); Eosinophils % 1.5 %; Hematocrit 34.4 % (35.3-44.9); Hemoglobin 11.5 g/dL (11.5-15.4); Immature Granulocytes % 0.4 % (0-4); Lymphocytes # 1.9 K/mcL (0.6-4.6); Lymphocytes % 41.2 %; Mean Corpuscular HGB Conc 33.4 g/dL (31.6-35.5); Mean Corpuscular Hemoglobin 30.3 pg (28.0-33.3); Mean Corpuscular Volume 90.5 fL (83.0-100.0); Mean Platelet Volume 11.2 fL (9.4-12.4); Monocytes # 0.4 K/mcL (0.0-1.3); Monocytes % 7.7 %; Neutrophils # 2.2 K/mcL (1.6-8.9); Platelet Count 112 K/mcL (140-400); Red Cell Distribution Width 13.2 % (11.5-14.5); Segmented Neutrophils % 48.8 %
[2017-11-08 07:05] VITALS: BP 117/60
[2017-11-08] MEDS: cefTRIAXone 1,000 MG in Water for inj. (sterile) 20 ML 10 ML IVP SCH (08:37)
[2017-11-08] MEDS: Venlafaxine XR (24 HR) 150 MG CAP.ER.24H PO SCH (08:38)
[2017-11-08] MEDS: Insulin LISPRO 300 UNITS/3 ML VIAL SQ SCH (08:38)
[2017-11-08] MEDS: Gabapentin 300 MG CAPSULE PO SCH (09:20)
--- NOTE | 2017-11-08 10:11 | Discharge Summary ---
- NOTES TO OUTPATIENT PROVIDER Notes to Outpatient Provider: Rhoda decreased, treated for UTI Date of Encounter: 11/08/17 Time of Encounter: 10:10 - Discharge Diagnosis (1) Syncope Priority: Primary Status: Acute Qualifiers: Syncope type: unspecified Qualified Code(s): R55 - Syncope and collapse (2) Diabetes mellitus Priority: Secondary Status: Chronic Qualifiers: Diabetes mellitus type: type 2 Diabetes mellitus retirement insulin use: without retirement use Diabetes mellitus complication status: with hyperglycemia Qualified Code(s): E11.65 - Type 2 diabetes mellitus with hyperglycemia (3) Thrombocytopenia Priority: Secondary Status: Chronic (4) Urinary tract infection Priority: Secondary Status: Acute Qualifiers: Urinary tract infection type: acute cystitis Hematuria presence: with hematuria Qualified Code(s): N30.01 - Acute cystitis with hematuria (5) Hypertension Priority: Secondary Status: Chronic Qualifiers: Hypertension type: essential hypertension Qualified Code(s): I10 - Essential (primary) hypertension Hospital course: Ms. Duffy is a 62 year old female past medical history arthritis diabetes for myalgia hyperlipidemia hypertension. Patient presented to the ER after feeling dizzy and she passed out. Patient did feeling dizzy for the past couple days however family says that her light headedness has been going on for some time. Her daughter reports that she has had several falls in the past. Urinalysis did indicate UTI patient was started on Rocephin and culture did grow Escherichia coli which was sensitive. She did receive [address] of head no acute intracranial abnormality MRI with minimal small vessel ischemic changes with no acute infarct or hemorrhage and nonspecific sclerotic right parietal bone lesion, echo was completed with EF of 60% no pulmonary hypertension mild left ventricular diastolic dysfunction mild concentric left ventricular hypertrophy normal right ventricular structure function mildly mitral regurgitation and mild aortic regurgitation mild tricuspid regurgitation carotid duplex completed which showed right carotid system has not sought plaque left distal ICA has moderate 40-59% stenosis. Orthostatics were completed initially they were positive and patient was very symptomatic. I did hold patient's Cozaar and Lopressor did improve we will decrease Cozaar advised patient to keep blood pressure log she will follow up with her PCP since this provider Mr. Nayak and can adjust medications accordingly. Advised patient to stay hydrated. Patient verbalized understanding she is medically stable and ready for discharge - Time Spent with Patient Total time spent providing and/or coordinating discharge services: - Discharge Medications Prescriptions: Losartan [Cozaar] 25 mg PO DAILY #30 tablet Home Medications: Diclofenac Sodium [Voltaren] 50 mg PO TID 06/25/15 [History] Ergocalciferol (VITAMIN D2) [Vitamin D2] 2,000 unit PO DAILY 06/25/15 [History] Cyclobenzaprine [Flexeril] 5 - 10 mg PO TID 11/06/17 [History] Gabapentin [Neurontin] 600 mg PO BID 11/06/17 [History] Metformin HCl 1,000 mg PO BID 11/06/17 [History] Mv,Fe,Min/Lutein [A Thru Z [employer] Tablet] 1 tab PO DAILY 11/06/17 [ History] Venlafaxine XR (24 HR) [Effexor Xr] 150 mg PO DAILY 11/06/17 [History] glipiZIDE [Glucotrol] 5 mg PO BID 11/06/17 [History] valACYclovir [Valtrex] 1,000 mg PO BID 11/06/17 [History] Losartan [Cozaar] 25 mg PO DAILY #30 tablet 11/08/17 [Rx] Allergies/Adverse Reactions: 3 Allergy/AdvReac Type Severity Reaction Status Date / Time codeine Allergy Hives Verified 11/08/16 16:41 Sulfa (Sulfonamide Allergy Hives Verified 11/08/16 16:41 Antibiotics) Date of admission: 11/04/17 19:50 Primary care physician: Susanna Garnica CNP Consults: 11/05/17 04:35 PT [Consult to Physical Therapy] [CONS] Routine Comment: Evaluate, develop and implement POC Reason for Consult: Falls at home, syncope episodes Does patient have active BEDREST order?: No Is patient medically & hemodynamically stable?: Yes Discharging clinician: Janeth Monroe Anticipated date of discharge: 11/08/17 - Constitutional Vitals: Temp Pulse Resp BP Pulse Ox 97.5 F L 58 16 117/60 98 11/08/17 06:58 11/08/17 06:58 11/08/17 06:58 11/08/17 06:58 11/08/17 06:58 General appearance: Present: cooperative, mild distress, A&O X 3, pleasant, answers questions appropriately Exam: see above - Head Head exam: Present: atraumatic, normocephalic - Eye Eye exam: Present: PERRL, conjuntiva pink, sclera anicteric Pupils: Present: PERRL - Neck Neck exam general surgery: Present: supple, trachea midline. Absent: lymphadenopathy - Respiratory Respiratory exam: Present: CTAB. Absent: accessory muscle use, rales, rhonchi, wheezes - Cardiovascular Cardiovascular exam: Present: RRR, +S1, +S2. Absent: diastolic murmur, gallop, rubs, systolic murmur - GI/Abdominal GI/Abdominal exam: Present: normal bowel sounds, soft, no peritoneal signs. Absent: distended, tenderness - Extremities Exam Extremities exam: Present: warm, radial pulses palpable and symmetrical. Absent : calf tenderness, cyanotic, pedal edema - Neurological Exam Neurological exam: Present: CN II-XII intact, oriented X3, no focal deficits. Absent: pronater drift, facial droop, speech deficit - Skin Skin exam: Present: dry, intact - Patient Status Disposition: Home, Self-Care Condition: Good Overall status at discharge: patient is back to baseline - Discharge Instructions Instructions: Urinary Tract Infection in Women (DC), Syncope (DC) Follow Up With: Susanna Garnica CNP [Primary Care Provider] - 11/12/17 2:00 pm Forms: Inpatient Work/School Release - Diet and Activity Activity: resume usual activities as tolerated Diet: advance to your usual diet
--- NOTE | 2017-11-08 17:45 | Electrocardiograph Report ---
[place] [id number] Test Date: 2017-11-04 Pat Name: Harmony Duffy Department: [id number] Room: 3B21 Gender: F Hide Salter: : 1955 Requested By: Oskar Viveros Order Number: [id number] Reading MD: Roxana Rader Measurements Intervals [place] Rate: 70 P: 38 [place]: 136 QRS: -41 QRSD: 95 T: 2 QT: 396 QTc: 428 Interpretive Statements Sinus rhythm Left anterior fascicular block Abnormal R-wave progression, late transition Electronically Signed On 11-08-2017 17:43:47 EDT by Roxana Rader
== END 2017-11-08 11:47 | disposition home or self-care (01) ==
LOC: EMEROOARM 17:34 → 3BNU 17:34 → SUATTDRO 19:50 → 3BNU 20:54
PROVIDERS: ADMIT Family Medicine; ATTEND Internal Medicine

== ENCOUNTER 2018-11-25 05:03 | Observation (INO) ==
[2018-11-25 05:48] LABS: Basophils % 0.2 %; Eosinophils # 0.1 K/mcL (0.0-0.6); Eosinophils % 1.1 %; Hematocrit 33.2 % (35.3-44.9); Hemoglobin 10.7 g/dL (11.5-15.4); Immature Granulocytes % 0.4 % (0-4); Lymphocytes # 2.1 K/mcL (0.6-4.6); Lymphocytes % 45.2 %; Mean Corpuscular HGB Conc 32.2 g/dL (31.6-35.5); Mean Corpuscular Hemoglobin 28.9 pg (28.0-33.3); Mean Corpuscular Volume 89.7 fL (83.0-100.0); Mean Platelet Volume 11.1 fL (9.4-12.4); Monocytes # 0.4 K/mcL (0.0-1.3); Monocytes % 7.9 %; Neutrophils # 2.1 K/mcL (1.6-8.9); Platelet Count 113 K/mcL (140-400); Segmented Neutrophils % 45.2 %; White Blood Count 4.7 K/mcL (4.3-11.1)
[2018-11-25 06:10] LABS: BUN/Creatinine Ratio 19 (6-26); Blood Urea Nitrogen 18 mg/dL (8-23); Calcium 8.3 mg/dL (8.6-10.3); Carbon Dioxide 24 mEq/L (23-29); Chloride 110 mEq/L (98-107); Glucose 159 mg/dL (70-105); Osmolality,Calculated 293 (280-300); Potassium 3.4 mEq/L (3.5-5.1); Sodium 139 mEq/L (136-145); eGFR For African Americans > 60 (> 60); eGFR For Non-African Americans > 60 (> 60)
[2018-11-25 06:11] LABS: Troponin I < 0.03 ng/mL (< 0.04)
[2018-11-25] MEDS ORDERED: Nitroglycerin 0.4 MG TAB.SUBL SL PRN (06:18)
[2018-11-25] MEDS ORDERED: Aspirin 81 MG TAB.CHEW PO STA (06:18)
[2018-11-25] MEDS ORDERED: Ondansetron 4 MG/2 ML VIAL IVP PRN (09:13)
[2018-11-25] MEDS ORDERED: Acetaminophen 325 MG TABLET PO PRN (09:13)
[2018-11-25] MEDS ORDERED: Naloxone 0.4 MG/ML INJ IVP PRN (09:13)
[2018-11-25] MEDS ORDERED: Dextrose Gel 15 GM/37.5 ML TUBE PO PRN ×2 (09:21)
[2018-11-25] MEDS ORDERED: D5% in Water 1,000 ML IVC PRN (09:21)
[2018-11-25] MEDS ORDERED: *HR* Dextrose 50 % in Water (Syg) 50 ML SYRINGE IVP PRN (09:21)
[2018-11-25] MEDS: Insulin LISPRO 300 UNITS/3 ML VIAL SQ SCH ×4 (15:08→18:15)
[2018-11-25] MEDS ORDERED: Perflutren Lipid Microsphere 1.3 ML in 0.9 % Sodium Chloride 8.7 ML IVP ONE (20:15)
[2018-11-25] MEDS ORDERED: Insulin DETEMIR 100 UNIT/ML X5UNITS SQ SCH (21:00)
[2018-11-25] MEDS ORDERED: Venlafaxine XR (24 HR) 150 MG CAP.ER.24H PO SCH (22:48)
[2018-11-26] MEDS: Insulin LISPRO 300 UNITS/3 ML VIAL SQ SCH ×5 (00:19→12:19)
[2018-11-26 04:34] LABS: Basophils % 0.2 %; Eosinophils # 0.1 K/mcL (0.0-0.6); Eosinophils % 1.6 %; Hemoglobin 10.9 g/dL (11.5-15.4); Immature Granulocytes % 0.6 % (0-4); Lymphocytes # 2.2 K/mcL (0.6-4.6); Lymphocytes % 43.3 %; Mean Corpuscular HGB Conc 32.1 g/dL (31.6-35.5); Mean Corpuscular Hemoglobin 29.3 pg (28.0-33.3); Mean Corpuscular Volume 91.4 fL (83.0-100.0); Monocytes # 0.4 K/mcL (0.0-1.3); Monocytes % 7.9 %; Neutrophils # 2.3 K/mcL (1.6-8.9); Platelet Count 117 K/mcL (140-400); Red Blood Count 3.72 M/mcL (3.82-4.97); Segmented Neutrophils % 46.4 %
[2018-11-26 04:53] LABS: BUN/Creatinine Ratio 15 (6-26); Blood Urea Nitrogen 17 mg/dL (8-23); Calcium 8.1 mg/dL (8.6-10.3); Carbon Dioxide 27 mEq/L (23-29); Chloride 106 mEq/L (98-107); Chol/HDL Ratio 4.3 (0-4.9); Cholesterol 167 mg/dL (< 200); Glucose 113 mg/dL (70-105); HDL Cholesterol 39 mg/dL (40-59); Osmolality,Calculated 292 (280-300); Potassium 4.2 mEq/L (3.5-5.1); Sodium 140 mEq/L (136-145); eGFR For African Americans > 60 (> 60); eGFR For Non-African Americans 50 (> 60)
[2018-11-26 05:58] LABS: LDL Cholesterol,Calculated 106 mg/dL (0-99); Triglycerides 108 mg/dL (< 150)
[2018-11-26] MEDS ORDERED: Regadenoson 0.4 MG/5 ML SYRINGE IVP ONE (06:30)
[2018-11-26 07:31] LABS: Estimated Average Glucose 217 mg/dl
[2018-11-26] MEDS ORDERED: Aspirin Enteric Coated 81 MG Tablet PO SCH (09:00)
[2018-11-26 11:06] VITALS: BP 134/80
== END 2018-11-26 12:38 | disposition home or self-care (01) ==
LOC: 3BNU 05:03 → EMEROOARM 05:03 → SUATTDRO 07:30 → 3BNU 08:39
PROVIDERS: ADMIT Pharmacist; ATTEND Family Medicine